=== PATIENT | male | born 1945 ===

== ENCOUNTER 2017-07-06 07:20 | Day surgery (SDC) | payer MEDICAID ==
[2017-07-04 11:31] VITALS: BMI 28.9
[2017-07-06] MEDS ORDERED: Sodium Chloride 0.9% 1,000 ML IV SCH (09:00)
[2017-07-06] MEDS ORDERED: Midazolam 2 MG/2 ML VIAL ONE (09:12)
[2017-07-06] MEDS ORDERED: Etomidate 40 MG/20 ML ML IV ONE (09:12)
[2017-07-06] MEDS ORDERED: Propofol 10 mg/ml Inj (20 ML) ONE (09:12)
[2017-07-06] MEDS ORDERED: Phenylephrine 10 mg/ml Inj ONE (09:35)
[2017-07-06 11:27] VITALS: BP 160/76; PULSE 83; RESP 16; TEMP 98; O2SAT 100
== END 2017-07-06 11:51 | disposition home or self-care (01) ==
LOC: ENDO 07:20
PROVIDERS: ATTEND Internal Medicine Gastroenterology
DX: Z12.11 Encounter for screening for malignant neoplasm of colon (principal); D12.5 Benign neoplasm of sigmoid colon; K57.30 Diverticulosis of large intestine without perforation or abscess without bleeding; K64.1 Second degree hemorrhoids
CPT/HCPCS: 45385; 82948; 88305; J2250; J2370; J2704; J7040 ×2

== ENCOUNTER 2017-08-07 08:57 | Emergency (ER) | payer MEDICAID ==
[2017-08-07 08:57] VITALS: BMI 30.9
[2017-08-07 09:02] VITALS: RESP 18; TEMP 98.3
[2017-08-07] MEDS ORDERED: Labetalol 5 mg/ml Inj 20ML IV STA (09:27)
--- NOTE | 2017-08-07 09:31 | ED PDOC ---
Arrival/HPI - General Chief Complaint: High Blood Pressure Time Seen by Provider: 08/07/17 09:13 Historian: Patient - History of Present Illness Narrative History of Present Illness (Text): 08/07/17 09:28 71 y/o male, htn/dm/cva/hyperlipiemia, nkda, c/o htn x 1 day. Pt. is prepared for the endoscopy today this morning, prior to the procedure, BP noted to be 200s/100s, asymptomatic, took his lisinopril 10mg po qd today which the pmd change it from 20mg po qd to 10mg po qd about 3 weeks ago, no headache, no palpitation, no chest pain or shortness of breath, no dizziness, no numbness or tingling, no tearing pain or bodyache, no rash, no vision change, no other medical or psychological complaints. Past Medical History - Provider Review Nursing Documentation Reviewed: Yes - Infectious Disease Hx of Infectious Diseases: None - Cardiac Hx Hypertension: Yes - Pulmonary Hx Respiratory Disorders: No - Neurological Hx Paralysis: No - HEENT Hx HEENT Disorder: (as per son, poor vision) Hx Cataracts: Yes (bilateral cataract surgery) Other/Comment: uses reading glasses - Renal Hx Renal Disorder: No - Endocrine/Metabolic Hx Diabetes Mellitus Type 2: Yes - Hematological/Oncological Hx Hepatitis C: Yes - Integumentary Hx Dermatological Disorder: No - Musculoskeletal/Rheumatological Hx Musculoskeletal Disorders: No - Gastrointestinal Hx Gastrointestinal Disorders: No - Genitourinary/Gynecological Hx Genitourinary Disorders: Yes Hx Prostate Problems: Yes - Psychiatric Hx Substance Use: No - Surgical History Hx Open Heart Surgery: Yes (2002) Other/Comment: brain sx - Anesthesia Hx Anesthesia Reactions: No Hx Malignant Hyperthermia: No - Suicidal Assessment Feels Threatened In Home Enviroment: No Family/Social History - Physician Review Nursing Documentation Reviewed: Yes Family/Social History: Unknown Family HX Smoking Status: Former Smoker Hx Alcohol Use: No Hx Substance Use: No Allergies/Home Meds Allergies/Adverse Reactions: Allergies No Known Allergies Allergy (Verified 07/10/17 20:41) Home Medications: Home Meds Medication Instructions Recorded Confirmed Glimepiride [Amaryl] 2 mg PO DAILY 07/04/17 08/07/17 MetFORMIN [glucoPHAGE] 1,000 mg PO BID 07/04/17 08/07/17 Tamsulosin [Flomax] 0.4 mg PO DAILY 07/04/17 08/07/17 Lisinopril [Zestril] 20 mg PO DAILY 07/06/17 08/07/17 Atorvastatin [Lipitor] 40 mg PO DIN 07/31/17 08/07/17 Review of Systems - Review of Systems Constitutional: absent: Fatigue, Fevers Eyes: absent: Vision Changes ENT: absent: Hearing Changes Respiratory: absent: SOB, Cough Cardiovascular: absent: Chest Pain, Palpitations, Calf Pain, BECERRIL, Orthopnea, Syncope Gastrointestinal: absent: Abdominal Pain, Nausea, Vomiting Musculoskeletal: absent: Arthralgias, Back Pain Skin: absent: Rash, Pruritis Neurological: absent: Headache, Dizziness Psychiatric: absent: Anxiety, Depression, Suicidal Ideation Physical Exam Vital Signs Reviewed: Yes Vital Signs Temp Pulse Resp BP Pulse Ox 08/07/17 10:02 88 145/85 08/07/17 09:01 98.3 F 90 18 201/111 H 99 Temperature: Afebrile Blood Pressure: Hypertensive Pulse: Regular Respiratory Rate: Normal Appearance: Positive for: Well-Appearing, Non-Toxic, Comfortable Pain Distress: None Mental Status: Positive for: Alert and Oriented X 3 - Systems Exam Head: Present: Atraumatic, Normocephalic Pupils: Present: PERRL, Other (no hyphema or subconjunctival hemorrage. ) Extroacular Muscles: Present: EOMI Conjunctiva: Present: Normal Ears: Present: NORMAL TM, Normal Canal. No: Erythema Mouth: Present: Moist Mucous Membranes Neck: Present: Normal Range of Motion Respiratory/Chest: Present: Clear to Auscultation, Good Air Exchange. No: Respiratory Distress, Accessory Muscle Use Cardiovascular: Present: Regular Rate and Rhythm, Normal S1, S2, Peripheal Pulses Present, Other (no pedal edema). No: Murmurs, Irregular Rhythm, Rub, Gallop, Muffled Abdomen: Present: Normal Bowel Sounds. No: Tenderness, Distention, Peritoneal Signs Back: Present: Normal Inspection Upper Extremity: Present: Normal Inspection. No: Cyanosis, Edema Lower Extremity: Present: Normal Inspection. No: Edema Neurological: Present: GCS=15, CN II-XII Intact, Speech Normal, Motor Func Grossly Intact, Gait Normal, Memory Normal, Other (no drift, normal finger to nose, normal heel to oh test, no focal neurological deficits. ) Skin: Present: Warm, Dry, Normal Color. No: Rashes Psychiatric: Present: Alert, Oriented x 3, Normal Insight, Normal Concentration Medical Decision Making ED Course and Treatment: 08/07/17 09:33 -labs/ua -ekg -Lisinopril -Observe and reassess 08/07/17 10:34 -EKG: NSR @ 85 BPM, no ST elevation or depression, no T wave inversion. -Labs reviewed from today this morning with normal bun/creatine level -Low magnesium 1.5, magnesium sulfate 1gm IV ordered -BP normalized to 145/85, asymptomatic, will discharge home -Discharge home with education on continue your blood pressure medication at home, record your blood pressure 3 times a day and bring it to your own pmd and food production supervisor for review and medication adjust as needed, return to the ER for any new or worsening signs or symptoms. - Lab Interpretations Lab Results: Lab Results 08/07/17 10:13: Magnesium 1.5 L - EKG Interpretation EKG Interpretation (Text): 08/07/17 09:34 -EKG: NSR @ 85 BPM, no ST elevation or depression, no T wave inversion. Interpreted by ED Physician: Yes Type: 12 lead EKG - Medication Orders Current Medication Orders: Magnesium Sulfate/Dextrose (Magnesium Sulfate 1 Gm/100 Ml D5w) 1 gm in 100 mls @ 100 mls/hr IVPB ONCE ONE Stop: 08/07/17 11:32 Last Admin: 08/07/17 10:55 Dose: 100 mls/hr eMAR Start Stop Document 08/07/17 10:55 MS (Rec: 08/07/17 10:55 [id number] Intravenous Solution Start Date 08/07/17 Start Time 10:55 End Date 08/07/17 End time 11:55 Total Infusion Time 60 Discontinued Medications Lisinopril (Zestril) 10 mg PO STAT STA Stop: 08/07/17 09:46 Last Admin: 08/07/17 10:02 Dose: 10 mg MAR Pulse and Blood Pressure Document 08/07/17 10:02 MS (Rec: 08/07/17 10:03 [id number]) Pulse Pulse Rate (60-90) 88 Blood Pressure Blood Pressure (100/60-150/90) 145/85 - PA / CORPORATE PLANNER / Resident Statement MD/DO has reviewed & agrees with the documentation as recorded. Disposition/Present on Arrival - Present on Arrival Any Indicators Present on Arrival: No History of DVT/PE: No History of Uncontrolled Diabetes: Yes Urinary Catheter: No History of Decub. Ulcer: No History Surgical Site Infection Following: None - Disposition Have Diagnosis and Disposition been Completed?: Yes Diagnosis: HTN (hypertension), Hypomagnesemia Disposition: HOME/ ROUTINE Disposition Time: 09:47 Patient Plan: Discharge Patient Problems: Current Active Problems Problem Status Onset HTN (hypertension) Chronic Hypomagnesemia Acute Condition: GOOD Additional Instructions: -Discharge home with education on continue your blood pressure medication at home, record your blood pressure 3 times a day and bring it to your own pmd and food production supervisor for review and medication adjust as needed, return to the ER for any new or worsening signs or symptoms. Referrals: Niki Millard MD [Primary Care Provider] - Follow up with primary Forms: WORK NOTE, [facility] (Maltese)
[2017-08-07] MEDS ORDERED: Magnesium Sulfate 1 gm in D5W 1 GM/100 ML BAG IVPB ONE (10:33)
[2017-08-07 11:30] VITALS: BP 156/89; PULSE 81; O2SAT 96
--- NOTE | 2017-08-08 02:38 | CARD ---
APPROVED REPORT EKG Measurement Heart [id number] <Conclusion> Poor data quality, interpretation may be adversely affected Normal sinus rhythm Normal ECG
== END 2017-08-07 11:38 | disposition home or self-care (01) ==
LOC: ED 08:57
DX: I10 Essential (primary) hypertension (principal); E83.42 Hypomagnesemia; E11.9 Type 2 diabetes mellitus without complications; E78.5 Hyperlipidemia, unspecified; Z87.891 Personal history of nicotine dependence
CPT/HCPCS: 83735; 93005; 96365; 99284; J3475